=== PATIENT | female | born 1995 | race Two or more races ===

== ENCOUNTER 2024-07-07 10:34 | Outpatient (CLI) | payer SELFPAY, OTHER ==
[~2024-07-07] VITALS: Ht 162.6 cm; Wt 87.4 kg
[2024-07-07 11:03] VITALS: BP 104/62; O2SAT 99
[2024-07-07] MEDS ORDERED: SENN8.6T58 PO (11:11)
[2024-07-07] MEDS ORDERED: POLY1POW38 PO (11:11)
[2024-07-07] MEDS ORDERED: MULTTAB20 PO (11:11)
[2024-07-07] MEDS ORDERED: HOME MED LIST COMPLETE! XX SCH (11:15)
[2024-07-07 14:17] LABS: Trichomonas vaginalis (AMP) NOT DETECTED (NEGATIVE)
== END 2024-07-07 12:15 | disposition home or self-care (01) ==
LOC: M LDO 10:34
PROVIDERS: ATTEND Obstetrics & Gynecology
DX: Z71.1 Person with feared health complaint in whom no diagnosis is made (principal); O34.211 Maternal care for low transverse scar from previous cesarean delivery; Z3A.34 34 weeks gestation of pregnancy
CPT/HCPCS: 59025; 87070; 87077; 87186; 87661; G0463

== ENCOUNTER → 2024-07-21 | Outpatient (REF) | payer OTHER ==
[~2024-07-21] MED LIST: MULTTAB20 PO; POLY1POW38 PO; SENN8.6T58 PO; VITA-176 PO
== END ==
LOC: M PLALAB 10:45
PROVIDERS: ATTEND Nurse Practitioner Family
DX: O34.211 Maternal care for low transverse scar from previous cesarean delivery (principal); O09.293 Supervision of pregnancy with other poor reproductive or obstetric history, third trimester; O99.820 Streptococcus B carrier state complicating pregnancy; O99.213 Obesity complicating pregnancy, third trimester; E66.09 Other obesity due to excess calories; Z3A.36 36 weeks gestation of pregnancy; Z75.8 Other problems related to medical facilities and other health care

== ENCOUNTER 2024-08-04 01:38 | Inpatient (IN) | payer OTHER ==
[~2024-08-04] VITALS: Ht 162.6 cm; Wt 90.1 kg
[2024-08-04] VITALS (10 sets, daily range): BP systolic 95–117; BP diastolic 59–74; TEMP 97.9; O2SAT 99–100
[2024-08-04] MEDS ORDERED: OXYTOCIN DRIP 30 UNITS in IV 1 EA IV PRN (03:00)
[2024-08-04] MEDS ORDERED: TRANEXAMIC ACID INJection 1,000 MG in NS 100 ML IV PRN (03:00)
[2024-08-04] MEDS ORDERED: CARBOPROST TROMETHAMINE 250 MCG/ML AMP IM PRN (03:00)
[2024-08-04] MEDS ORDERED: OXYTOCIN INJ 10UNITS/ML 1ML VIAL IM PRN (03:00)
[2024-08-04] MEDS: ceFAZolin SODIUM 2 GM in DEXTROSE 5% (D5W) ADV/MINI-BAG 50 ML IV ONE (03:00)
[2024-08-04] MEDS ORDERED: LIDOCAINE 1% MDV 20ML VIAL INFIL PRN (03:00)
[2024-08-04] MEDS ORDERED: METHYLERGONOVINE MALEATE 0.2MG/ML 1ML VIAL IM PRN (03:00)
[2024-08-04] MEDS: LACTATED RINGER'S 1000 ML IV STA (03:30)
[2024-08-04 03:33] LABS: HEMATOCRIT 34.4 % (36.0-47.0); HEMOGLOBIN 11.6 g/dl (12.0-15.5); MEAN CORPUSCULAR HEMOGLOBIN 29.5 pg (27.0-33.0); MEAN CORPUSCULAR HGB CONC 33.7 g/dl (32.0-36.5); MEAN CORPUSCULAR VOLUME 87.5 fl (80.0-96.0); PLATELET COUNT, AUTOMATED 197 10^3/uL (150-450); RED BLOOD COUNT 3.93 10^6/uL (4.00-5.40); WHITE BLOOD COUNT 7.4 10^3/uL (4.0-10.0)
[2024-08-04 04:23] LABS: HIV 1&2 SCREEN NEGATIVE (NEGATIVE)
[2024-08-04 04:31] LABS: HEPATITIS C VIRUS ABY INDEX 0.04 INDEX (<0.8)
[2024-08-04] MEDS: LR 1,000 ML IV SCH ×3 (04:46→08:17)
[2024-08-04] MEDS: BICITRA 30ML SOLN UDC PO ONE (04:46)
[2024-08-04] MEDS: AZITHROMYCIN INJ 500 MG, VIAL MATE ADAPTER 1 EACH in NS 250 ML IV ONE (04:47)
[2024-08-04] MEDS ORDERED: OXYTOCIN 30UNITS IN 0.9% NaCl 500ML IV BAG As Ordered ONE (04:51)
[2024-08-04] MEDS ORDERED: ACETAMINOPHEN 1000MG/100ML IV BAG As Ordered ONE (04:53)
[2024-08-04] MEDS ORDERED: ONDANSETRON 4MG 2ML VIAL As Ordered ONE (05:31)
[2024-08-04] MEDS ORDERED: MORPHINE PRES-FREE INJ 10 MG/10 ML VIAL As Ordered ONE (05:31)
[2024-08-04] MEDS ORDERED: ePHEDrine SULFATE 25 MG/5 ML(5MG/ML) SYRINGE As Ordered ONE (05:31)
[2024-08-04] MEDS ORDERED: KETOROLAC 30 MG/ML 1ML VIAL As Ordered ONE (05:31)
[2024-08-04] MEDS ORDERED: diphenhydrAMINE 50MG/ML VIAL As Ordered ONE (05:35)
[2024-08-04] MEDS ORDERED: dexmedeTOMIDine (4MCG/ML)200MCG/50ML BTL (PRECEDEX) As Ordered ONE (05:38)
[2024-08-04] MEDS ORDERED: SIMETHICONE 80MG CHEW TAB PO PRN (06:00)
[2024-08-04] MEDS ORDERED: ONDANSETRON 4MG 2ML VIAL IV PRN ×2 (06:00→06:15)
[2024-08-04] MEDS ORDERED: RHOGAM 300MCG (1500IU) INJ IM SCH (06:00)
[2024-08-04 06:01] LABS: CORD GAS ABE A -1.3; CORD GAS HCO3 A 25.2 MMOL/L; CORD GAS HCO3 V 22.3 MMOL/L; CORD GAS O2 SAT A 77.3 %; CORD GAS PCO2 A 49.1 mmHg; CORD GAS PCO2 V 33.5 mmHg; CORD GAS PH A 7.329 UNITS; CORD GAS PH V 7.441 UNITS; CORD GAS PO2 A 34.5 mmHg; CORD GAS PO2 V 150.6 mmHg; CORD GAS SBC A 22.8 MMOL/L; CORD GAS SBC V 23.7 MMOL/L; CORD GAS TCO2 A 26.8 MMOL/L; CORD GAS TCO2 V 23.3 MMOL/L
[2024-08-04] MEDS ORDERED: MIDAZOLAM INJ 2MG/2ML VIAL As Ordered ONE (06:03)
[2024-08-04] MEDS: SLF 3 ML SYR IV SCH (06:15)
[2024-08-04] MEDS ORDERED: NALOXONE INJ 0.4MG/1ML VIAL IV PRN ×2 (06:15)
[2024-08-04] MEDS ORDERED: diphenhydrAMINE 50MG/ML VIAL IV PRN (06:15)
[2024-08-04] MEDS ORDERED: **NOTE PATIENT COMMENT** MISC XX SCH (06:15)
[2024-08-04] MEDS ORDERED: METOCLOPRAMIDE INJ 10MG/2ML VIAL IV PRN (06:15)
[2024-08-04] MEDS ORDERED: oxyCODONE 5MG TAB PO PRN (06:15)
[2024-08-04] MEDS ORDERED: fentaNYL 100 MCG/2 ML INJECTION IV PRN (06:15)
[2024-08-04] MEDS: PRENATAL VITAMINS CHEWABLE TABLET PO SCH (08:53)
[2024-08-04] MEDS: KETOROLAC 30 MG/ML 1ML VIAL IV SCH (12:39)
[2024-08-04] MEDS ORDERED: OXYC1TAB23 PO (22:37)
[2024-08-04] MEDS ORDERED: COLA100C5 PO (22:37)
[2024-08-04] MEDS ORDERED: IBUP80TA PO (22:37)
[2024-08-05 02:00] VITALS: BP 103/66; O2SAT 96
[2024-08-05 06:00] VITALS: BP 99/68; O2SAT 97
[2024-08-05 06:59] LABS: HEMATOCRIT 33.4 % (36.0-47.0); HEMOGLOBIN 11.1 g/dl (12.0-15.5); MEAN CORPUSCULAR HEMOGLOBIN 29.4 pg (27.0-33.0); MEAN CORPUSCULAR HGB CONC 33.2 g/dl (32.0-36.5); MEAN CORPUSCULAR VOLUME 88.6 fl (80.0-96.0); PLATELET COUNT, AUTOMATED 151 10^3/uL (150-450); RED BLOOD COUNT 3.77 10^6/uL (4.00-5.40); WHITE BLOOD COUNT 7.5 10^3/uL (4.0-10.0)
[2024-08-05] MEDS: IBUPROFEN 800 MG TAB PO SCH (08:24)
[2024-08-05 10:00] VITALS: BP 104/68; O2SAT 96
[2024-08-05] MEDS: DOCUSATE SODIUM 100MG CAPSULE PO PRN (10:33)
[2024-08-05 14:00] VITALS: BP 99/62; O2SAT 99
[2024-08-05] MEDS: PERCOCET 5MG/325MG TAB PO PRN ×2 (15:41→20:50)
[2024-08-05 18:00] VITALS: BP 104/71; O2SAT 100
[2024-08-05 21:53] VITALS: BP 118/64; O2SAT 98
[2024-08-06 02:00] VITALS: BP 113/74; O2SAT 98
[2024-08-06 06:04] VITALS: BP 98/56; O2SAT 100
[2024-08-06] MEDS ORDERED: MEASLES,MUMPS,RUBELLA VACCINE INJ (MMR-II) SC.IMMUN ONE (09:00)
== END 2024-08-06 14:00 | disposition home or self-care (01) | DRG 540 ==
LOC: M LDO 01:38 → M LDI 02:55 → M OBS 08:35
PROVIDERS: ADMIT Advanced Practice Midwife; ATTEND Advanced Practice Midwife
PROC: 10D00Z1 Extraction of Products of Conception, Low, Open Approach (ICD-10-PCS; principal; 2024-08-04 05:09)
DX: O34.211 Maternal care for low transverse scar from previous cesarean delivery (principal); Z37.0 Single live birth; Z3A.38 38 weeks gestation of pregnancy

== ENCOUNTER → 2024-12-15 | Outpatient (CLI) | payer OTHER, SELFPAY ==
[~2024-12-15] MED LIST changes: +CHOL25TA15 PO; +COLA100C5 PO; +IBUP80TA PO; +OXYC1TAB23 PO; -VITA-176 PO
== END ==
LOC: M CARPUL 10:02
PROVIDERS: ATTEND Internal Medicine
DX: R06.00 Dyspnea, unspecified (principal)

== ENCOUNTER → 2024-12-24 | Outpatient (CLI) | payer OTHER | LOC: M WHC 10:55 | PROVIDERS: ATTEND Internal Medicine | DX: Z12.31 Encounter for screening mammogram for malignant neoplasm of breast (principal); Z53.9 Procedure and treatment not carried out, unspecified reason ==